=== PATIENT | male | born 1980 | race Caucasian/White ===

== ENCOUNTER 2023-03-28 15:24 | Inpatient (IN) | payer BC, SELFPAY ==
--- NOTE | ~2023-03-28 | CT_ITS ---
EXAMINATION: CT HEAD WITHOUT CONTRAST CLINICAL INFORMATION: Status post exchange administrator one week. COMPARISON: None available. TECHNIQUE: Contiguous axial imaging was performed from the skull base to vertex without intravenous administration of contrast. This CT examination was performed using dose optimization techniques as appropriate, variously including the following: *Automated exposure control *Adjustment of mA and/or kV according to patient size (this includes techniques or standardized protocols for targeted exams where dose is matched to indication/reason for exam; i.e. extremities or head) *Use of iterative reconstruction technique DLP: 1466 mGy-cm FINDINGS: The lateral, third and fourth ventricles are normally outlined. The cortical sulci and basal cisterns are normally outlined as well. There is no acute territorial defect, hemorrhage or midline shift. There is a 6 mm hypodensity in the region of the left basal ganglia. There is no acute territorial defect, hemorrhage or midline shift. The extra-axial spaces are unremarkable. Calvarium: Intact. Maxillofacial sinuses and mastoids: Clear as visualized. CT/CT head/brain wo IV con IMPRESSION: No acute intracranial pathology. 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
[2023-03-28 15:59] VITALS: BP 167/113; PULSE 115; RESP 18; TEMP 37.1; O2SAT 98; BMI 31.9
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
--- NOTE | 2023-03-28 16:03 | ECG_ITS ---
Test Reason : QT INTERVAL Blood Pressure : / mmHG Vent. Rate : 105 BPM Atrial Rate : 105 BPM P-R Int : 122 ms QRS Dur : 078 ms QT Int : 324 ms P-R-T Axes : 065 053 053 degrees QTc Int : 428 ms Sinus tachycardia RSR' pattern in V1 Nonspecific T wave abnormality Inferior leads Borderline ECG No previous ECGs available Referred By: Nelson Bernard Electronically Signed By:JORDAN DIA MD
[2023-03-28 17:11] LABS: MANUAL DIFF FLAG NO
[2023-03-28] MEDS: OLANZapine 5 MG TABLET PO (17:14)
--- NOTE | 2023-03-28 17:26 | PC.NURSE ---
Huber arrived as a voluntary inpatient bed search from [facility]. Huber was accompanied by his who reports he has slept very little in the last 2 weeks averaging an hour a night. Huber is disorganized and confused having a difficult time following directions and completing simple tasks like getting changed. EKG completed and labs drawn. Awaiting urine and providing water. Huber is observed self dialoguing and is requiring redirection to remain in his room or the TV area. Huber has required redirection to keep his clothes on as well as he has removed them twice. Olanzapine 5mg given awaiting results.
[2023-03-28 17:29] LABS: Basophils Percent Auto 0.3 % (0-2); Eosinophils Percent Auto 0.3 % (0-4); Ethanol < 10 mg/dL; Hematocrit 49.8 % (42.0-52.0); Imm Gran Abs Auto 0.04 X10*3/uL (0.00-0.03); Imm Gran Pct Auto 0.3 % (0.0-0.4); Lymphocytes Absolute Auto 1.9 X10*3/uL (1.2-4.9); Lymphocytes Percent Auto 16.2 % (20-40); Mean Corpuscular HGB Conc 34.1 g/dl (31.0-36.0); Monocytes Absolute Auto 0.9 X10*3/uL (0.1-1.2); Monocytes Percent Auto 7.7 % (2-11); Neutrophils Absolute Auto 8.6 x10*3/uL (2.0-8.3); Neutrophils Percent Auto 75.2 % (45-73); Platelet Count 280 X10*3/uL (160-400); Red Blood Count 5.86 X10*6/uL (4.60-5.80); Red Cell Distribution Width 12.3 % (11.0-16.0); White Blood Count 11.5 X10*3/uL (4.8-10.8)
[2023-03-28 17:36] LABS: Acetaminophen LAB < 17 mcg/mL (<30)
[2023-03-28 17:38] LABS: Alanine Aminotransferase 41 U/L (0-40); Albumin Level 5.3 g/dL (3.5-5.0); Alkaline Phosphatase 69 U/L (39-117); Anion Gap 18 (12-20); Aspartate Amino Transferase 27 U/L (5-37); Bilirubin Total 0.7 mg/dL (0.0-1.0); Blood Urea Nitrogen 13 mg/dL (9-16); Calcium 10.7 mg/dL (8.4-10.2); Carbon Dioxide 23 mmol/L (22-29); Chloride 103 mmol/L (96-108); Creatinine Clr Calc Pharmacy 96.3; Estimated Glomerular Filt Rate > 60; Glucose Random 134 mg/dL (60-115); Lipase 15 U/L (8-78); Potassium 3.6 mmol/L (3.3-5.1); Sodium 140 mmol/L (135-145); Total Protein 8.8 g/dL (6.5-8.0)
[2023-03-28 17:52] LABS: TSH reflex Free T4 1.19 uIU/mL (0.32-4.0)
[2023-03-28 18:35] LABS: Ammonia 26 umol/L (13-55)
[2023-03-28 19:10] LABS: Salicylate < 5.0 mg/dL (15-30)
[2023-03-28 19:32] LABS: Appearance Urine Clear; Color Urine Yellow; Glucose Urine UA Negative (Negative); Leukocyte Esterase Urine Negative (Negative); Nitrite Urine Negative (Negative); PH 5.5 (5.0-9.0); Specific Gravity - Urine <= 1.005 (1.005-1.025); Urine Blood Negative (Negative); Urine Ketones Negative (Negative); Urine Protein Negative (Neg-Trace)
[2023-03-28 19:35] LABS: Bacteria Urine None Seen (None Seen); Hyaline Casts Urine 0-2 /LPF (0-2); RBC Urine 0-2 /HPF (0-2); Squamous Epithelial Cell Urine 0-2 /HPF (0-2); WBC Urine 0-5 /HPF (0-5)
[2023-03-28 19:42] LABS: Amphetamine Screen Urine Not Detected (Not Detect); Barbiturates, Urine Not Detected (Not Detect); Benzodiazepines Screen Urine Not Detected (Not Detect); Cannabinoid Screen Urine POSITIVE (Not Detect); Cocaine Screen Urine Not Detected (Not Detect); Fentanyl, urine Not Detected (Not Detect); Opiate Screen Urine Not Detected (Not Detect); Phencyclidine Screen Urine Not Detected (Not Detect)
--- OUTSIDE RECORDS SUMMARY | 2023-03-28 19:57 | XMS_ITS | Continuity of Care Document ---
Author Name Unknown Organization [facility] Address [address] [place] [address]- Care Team Providers Care Power Electronics Engineer Name Role Phone Suman Tavera MD Primary Care Physician Encounter [facility] Date(s): 11/07/21 - 12/07/21 [facility] [address] [place] [place], [place] [address] Attending Physician: Eduard Funes Admitting Physician: AdmEduard hill Referring Physician: Admtr, [id number] Allergies, Adverse Reactions, Alerts No Known Allergies Immunizations Given and Recorded Vaccine Date Status Refusal Reason tetanus/diphtheria/pertussis, acel(Tdap) 10/10/11 Given Medications diclofenac 1% topical gel 1 application, Topically, 4 times a day, 2 g per dose, 8 g max day, # 100 Gm, 0 Refills, Maintenance, 11/07/21 12:00:00 EDT, Gel, [id number], Partial fill upon patient request if theprescription is for a schedule II opioid drug., 176... Start Date: 11/07/21 Stop Date: 11/14/21 Status: Ordered Problem List Condition Effective Dates Status Health Status Inform ant Essential Hypertension(Confirmed) Active Overweight and Obesity(Confirmed) Active
--- OUTSIDE RECORDS SUMMARY | 2023-03-28 19:57 | XMS_ITS | Continuity of Care Document ---
Author Name Unknown Organization [facility] Address [address] [place] [address]- Care Team Providers Care Movie Shot Cameraman Name Role Phone Suman Tavera MD Primary Care Physician [phone] Encounter [facility] Date(s): 11/07/21 - 11/14/21 [facility] [address] [place], [place] [address] Attending Physician: Avi Aguilar DO Allergies, Adverse Reactions, Alerts No Known Allergies Immunizations Given and Recorded Vaccine Date Status Refusal Reason tetanus/diphtheria/pertussis, acel(Tdap) 10/10/11 Given Medications diclofenac 1% topical gel 1 application, Topically, 4 times a day, 2 g per dose, 8 g max day, # 100 Gm, 0 Refills, Maintenance, 11/07/21 12:00:00 EDT, Gel, [id number], Partial fill upon patient request if theprescription is for a schedule II opioid drug., 176... Start Date: 11/07/21 Stop Date: 11/14/21 Status: Ordered Problem List Condition Effective Dates Status Health Status Inform ant Essential Hypertension(Confirmed) Active Overweight and Obesity(Confirmed) Active Vital Signs Most recent to oldest [Reference Range]: 1 Height 176.00 cm (11/07/21 11:34 AM) Oxygen Saturation [94-100 %] 96 % (11/07/21 11:34 AM) Pulse Rate [55-90 bpm] 78 bpm (11/07/21 11:34 AM) Blood Pressure [90-138/55-84 mm Hg] 150/ 103mm Hg *H* (11/07/21 11:34 AM) Respiratory Rate [16-30 br/min] 16 br/mi n (11/07/21 11:34 AM) Temperature [96.8-100.4 DegF] 98.1 DegF (11/07/21 11:34 AM) Mode of Delivery (Oxygen) Room air (11/07/21 11:34 AM) Blood pressure sites Arm, right (11/07/21 11:34 AM) Temperature Route Temporal (11/07/21 11:34 AM)
[2023-03-28] MEDS: OLANZapine ODT 10 MG TAB.RAPDIS 20 MG TRANSLINGU (21:29)
[2023-03-28] MEDS: LORazepam 1 MG TABLET 2 MG PO (21:29)
[2023-03-29 00:29] VITALS: RESP 16
--- NOTE | 2023-03-29 05:47 | PC.NURSE ---
Patient was disorganized, difficult to redirect, disrobing, disoriented, carbon sequestration plant engineer psychiatrist reach out for consult, Olanzapine 20 mg Zydis and ativan 2 mg po administered @ 2128 with + effect, patient ate 2 full sandwiches, provided urine sample, went to bed slept through the night, no distress observed/reported, disposition per [facility] is voluntary inpatient bed search, labs completed/resulted, will continue to monitor.
--- NOTE | 2023-03-29 07:37 | PC.NURSE ---
patient appears to remain asleep at present respirations are even and unlabored patient appears in no distress.
[2023-03-29 10:17] LABS: COVID-19 Test Negative (Negative); IDNOW Serial# BCCEAD1C
[2023-03-29] MEDS: Sertraline HCL 50 MG TABLET PO (10:41)
[2023-03-29 10:43] VITALS: BP 134/83; PULSE 87; RESP 16; TEMP 36.7; O2SAT 97
--- NOTE | 2023-03-29 11:32 | PC.NURSE ---
patient brought over to main ED, resting in bed in front of nurses station. respirations equal and unlabored pt does not appear to be in distress
[2023-03-29 14:41] VITALS: BP 136/93; PULSE 94; RESP 18; O2SAT 96
--- NOTE | 2023-03-29 14:42 | PC.NURSE ---
patient refused miralax and biscodyl states his bowels are fine
--- NOTE | 2023-03-29 15:55 | PHA.MEDREC ---
Pharmacy Consult ? Medication Reconciliation Pharmacy has completed the medication reconciliation. Reviewed med rec done by nursing
[2023-03-29 18:00] VITALS: BP 157/100; PULSE 111; TEMP 36.6; O2SAT 95
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
[2023-03-30] MEDS: Sertraline HCL 50 MG TABLET PO (08:17)
[2023-03-30] MEDS: Nicotine 14 MG PATCH.TD24 TRANSDERMA (08:18)
[2023-03-30 08:23] LABS: Alanine Aminotransferase 41 U/L (0-40); Albumin Level 4.5 g/dL (3.5-5.0); Alkaline Phosphatase 64 U/L (39-117); Anion Gap 16 (12-20); Aspartate Amino Transferase 24 U/L (5-37); Bilirubin Total 0.7 mg/dL (0.0-1.0); Blood Urea Nitrogen 20 mg/dL (9-16); Calcium 10.5 mg/dL (8.4-10.2); Carbon Dioxide 24 mmol/L (22-29); Chloride 108 mmol/L (96-108); Cholesterol 165 mg/dL (<200); Creatinine Clr Calc Pharmacy 88.4; Estimated Glomerular Filt Rate > 60; Glucose Fasting 100 mg/dL (60-99); HDL Cholesterol 34 mg/dL (>40); LDL Cholesterol Calculated 101 mg/dL (<100); Potassium 4.1 mmol/L (3.3-5.1); Sodium 144 mmol/L (135-145); Total Protein 7.5 g/dL (6.5-8.0); Triglycerides 150 mg/dL (<150)
[2023-03-30 09:26] VITALS: BP 171/108; PULSE 96; RESP 18; TEMP 36.2; O2SAT 96
[2023-03-30 09:40] VITALS: BP 167/106; PULSE 109
[2023-03-30] MEDS: LORazepam 1 MG TABLET PO (09:44)
[2023-03-30] MEDS: risperiDONE 0.25 MG TABLET PO (12:38)
[2023-03-30 18:00] VITALS: BP 136/92; PULSE 100; TEMP 36.1; O2SAT 97
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
[2023-03-30] MEDS: risperiDONE 0.5 MG TABLET PO (20:22)
[2023-03-31] MEDS: Sertraline HCL 50 MG TABLET PO (08:05)
[2023-03-31 10:03] VITALS: BP 157/97; PULSE 84; RESP 18; TEMP 36.4; O2SAT 97
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
[2023-03-31] MEDS: risperiDONE 0.5 MG TABLET PO ×2 (10:53→20:12)
[2023-03-31] MEDS: risperiDONE 0.25 MG TABLET PO (16:38)
[2023-03-31] MEDS: OLANZapine 5 MG TABLET PO (17:36)
[2023-03-31 18:31] VITALS: BP 164/102; PULSE 115; TEMP 36.4
[2023-03-31] MEDS: hydrOXYzine HCL 50 MG TABLET PO (22:37)
[2023-03-31] MEDS: OLANZapine 10 MG TABLET PO (23:38)
[2023-04-01 01:37] VITALS: BP 152/110; PULSE 92; RESP 18; O2SAT 94
[2023-04-01 08:00] VITALS: BP 154/106; PULSE 100; RESP 16; TEMP 36.8; O2SAT 96
[2023-04-01] MEDS: Sertraline HCL 50 MG TABLET PO (09:06)
[2023-04-01] MEDS: risperiDONE 0.5 MG TABLET PO (09:06)
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
[2023-04-01] MEDS: hydrOXYzine HCL 50 MG TABLET PO (13:09)
[2023-04-01] MEDS: cloNIDine HCL 0.1 MG TABLET PO ×2 (16:54→19:41)
[2023-04-01 16:57] VITALS: BP 141/99; PULSE 116; RESP 18
[2023-04-01 19:00] VITALS: BP 128/89; PULSE 85; RESP 16; TEMP 36.1; O2SAT 94
[2023-04-01] MEDS: Benztropine Mesylate 0.5 MG TABLET PO (19:41)
[2023-04-01] MEDS: risperiDONE 1 MG TABLET PO (19:41)
[2023-04-02 08:01] VITALS: BP 160/97; PULSE 102; RESP 16; TEMP 36.2; O2SAT 95
[2023-04-02] MEDS: Benztropine Mesylate 0.5 MG TABLET PO ×2 (08:51→19:43)
[2023-04-02] MEDS: cloNIDine HCL 0.1 MG TABLET PO ×3 (08:51→19:43)
[2023-04-02] MEDS: Nicotine 14 MG PATCH.TD24 TRANSDERMA (08:51)
[2023-04-02] MEDS: Sertraline HCL 50 MG TABLET PO (08:52)
[2023-04-02] MEDS: risperiDONE 1 MG TABLET PO (08:52)
[2023-04-02] MEDS: risperiDONE 0.25 MG TABLET 0.5 MG PO (12:08)
[2023-04-02] MEDS: hydrOXYzine HCL 50 MG TABLET PO (12:55)
[2023-04-02] MEDS: LORazepam 1 MG TABLET PO (13:15)
[2023-04-02] MEDS: HaloperidoL 5 MG TABLET 10 MG PO (13:15)
--- NOTE | 2023-04-02 13:35 | PC.NURSE ---
pt placed on 1:1 safety checks due to disorganization, disrobing, ad attempting to push through the nurses station
[2023-04-02 14:05] VITALS: BP 169/89; PULSE 112
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
[2023-04-02 18:00] VITALS: BP 133/90; PULSE 94; RESP 18; O2SAT 99
[2023-04-02] MEDS: risperiDONE 2 MG TABLET PO (19:43)
[2023-04-03 08:45] VITALS: BP 133/93; PULSE 77; RESP 16; TEMP 35.9; O2SAT 98
[2023-04-03] MEDS: cloNIDine HCL 0.1 MG TABLET PO ×3 (08:46→19:22)
[2023-04-03] MEDS: Benztropine Mesylate 0.5 MG TABLET PO ×2 (08:47→19:21)
[2023-04-03] MEDS: Sertraline HCL 50 MG TABLET PO (08:47)
[2023-04-03] MEDS: Nicotine 14 MG PATCH.TD24 TRANSDERMA (08:47)
[2023-04-03] MEDS: risperiDONE 2 MG TABLET PO ×2 (08:47→19:21)
[2023-04-03] MEDS: HaloperidoL 5 MG TABLET PO (10:38)
[2023-04-03] MEDS: risperiDONE 0.25 MG TABLET 0.5 MG PO (13:04)
[2023-04-03 14:57] VITALS: BP 135/90; PULSE 73
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
[2023-04-03] MEDS: Magnesium Hydrox/Alum Hydrox 30 ML ORAL.SUSP PO (18:37)
[2023-04-03 19:15] VITALS: BP 144/87; PULSE 113; TEMP 36.6
[2023-04-03] MEDS: traZODone HCL 50 MG TABLET PO (19:21)
[2023-04-04] MEDS: traZODone HCL 50 MG TABLET PO ×2 (00:02→20:04)
[2023-04-04] MEDS: hydrOXYzine HCL 50 MG TABLET PO (00:03)
[2023-04-04] MEDS: HaloperidoL 5 MG TABLET PO (00:03)
[2023-04-04 07:00] VITALS: BMI 31.9
[2023-04-04] MEDS: Sertraline HCL 50 MG TABLET PO (08:24)
[2023-04-04] MEDS: cloNIDine HCL 0.1 MG TABLET PO ×2 (08:24→14:34)
[2023-04-04] MEDS: Benztropine Mesylate 0.5 MG TABLET PO ×2 (08:24→20:05)
[2023-04-04] MEDS: risperiDONE 2 MG TABLET PO (08:24)
[2023-04-04] MEDS: Nicotine 14 MG PATCH.TD24 TRANSDERMA (08:24)
[2023-04-04 08:30] VITALS: BP 163/94; PULSE 74; RESP 18; TEMP 36.6; O2SAT 98
[2023-04-04 08:44] LABS: Estimated Average Glucose 103 mg/dL; Hemoglobin A1c % 5.2 % (<6.0)
[2023-04-04 09:29] LABS: Folate 11.4 ng/mL (> or = 4.0); Vitamin B12 536 pg/mL (200-900)
[2023-04-04] MEDS: HaloperidoL 5 MG TABLET 10 MG PO ×2 (11:12→20:04)
[2023-04-04] MEDS: Hydrocortisone 1 % Cream 28.35 GM TUBE 1 APPL TOPICAL (14:56)
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
[2023-04-04 18:00] VITALS: BP 92/56; PULSE 70; TEMP 35.8; O2SAT 97
[2023-04-05 08:30] VITALS: BP 132/87; PULSE 79; RESP 16; TEMP 36.6; O2SAT 98
[2023-04-05] MEDS: cloNIDine HCL 0.1 MG TABLET PO (08:36)
[2023-04-05] MEDS: Sertraline HCL 50 MG TABLET PO (08:36)
[2023-04-05] MEDS: HaloperidoL 5 MG TABLET 10 MG PO (08:36)
[2023-04-05] MEDS: Benztropine Mesylate 0.5 MG TABLET PO (08:36)
[2023-04-05] MEDS: HaloperidoL 5 MG TABLET PO (10:49)
--- NOTE | 2023-04-05 16:21 | PM.PSYDC ---
DS: Providers Provider Date of Service: 04/05/23 Date of admission: 03/29/23 15:53 Date of discharge: 04/05/23 Primary care physician: Unknown Physician Admitting clinician: Xiao Jones Attending physician on admission: Hebert Langston Attending physician on discharge: Hebert Langston Discharging clinician: Erika Okeefe DS: Diagnosis Discharge Diagnosis (1) Acute psychosis: Status: Resolved (2) Acute anxiety: Status: Resolved (3) Post traumatic stress disorder: Status: Acute DS: Medications Discharge Medications Home Medications: Previous Rx's Medication Instructions Recorded benztropine 0.5 mg tablet 0.5 mg PO BID #60 tabs 04/05/23 clonidine HCl 0.1 mg tablet 0.1 mg PO TID #90 tabs 04/05/23 haloperidol 5 mg tablet 5 mg PO BID PRN psychosis, 04/05/23 agitation #30 tabs haloperidol 5 mg tablet 10 mg (2 x 5 mg) PO BID #60 tabs 04/05/23 hydrocortisone 1 % topical cream 1 appl topical BID PRN Rash #1 04/05/23 units hydroxyzine pamoate 25 mg capsule 50 mg (2 x 25 mg) PO BID PRN 04/05/23 Anxiety #60 caps sertraline 50 mg tablet 50 mg PO DAILY #30 tabs 04/05/23 trazodone 50 mg tablet 50 mg PO BEDTIME MRX1 PRN Insomnia 04/05/23 #30 tabs Mental Status Exam Mental Status Exam Patient Appearance: Appropriate Patient Orientation: Person, Place, Time and Situation Level of Consciousness: Alert Patient Behavior: Appropriate, Talkative and Good Eye Contact Mood Description: Apprehensive Affect Description: Apprehensive Patient Cognition Impaired: No Ability to Follow Directions: Fair Speech Pattern: Spontaneous Speech Memory Description: Intact Hallucinations: None Delusions: Paranoid Ideation and Present Perceptual Disturbances: Depersonalization and Derealization Thought Process: Distracted Thought Content: positive for Suicidal Ideation (denies) and positive for Homicidal Ideation (denies) Depressive Symptoms: Increased Anxiety Judgement: Fair Data Data Completed and Pending Completed studies during hospitalization [Text1]: 03/30/23 04/04/23 07:40 08:16 Sodium 144 Potassium 4.1 Chloride 108 Carbon Dioxide 24 Anion Gap 16 BUN 20 H Creatinine 1.23 Estim Creat Clear Calc 88.4 Estimated GFR > 60 Fasting Glucose 100 H Estimat Average Glucose 103 Hemoglobin A1c % 5.2 Calcium 10.5 H Total Bilirubin 0.7 AST 24 ALT 41 H Alkaline Phosphatase 64 Total Protein 7.5 Albumin 4.5 Triglycerides 150 H Cholesterol 165 LDL Cholesterol, Calc 101 H HDL Cholesterol 34 L Vitamin B12 536 Folate 11.4 Imaging Diagnostic Imaging Impressions Head CT 03/28/23 18:34 IMPRESSION: No acute intracranial pathology. 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 DS: Summary Hospital Course Hospital Course: Admission to adult psychiatry for exacerbation of PTSD with acute psychosis. Pt's symptoms were best treated with Haldol. He was beginning to recompensate and do well. His family was very concerned that he was on a psychiatric unit. Unfortunately their community gave pt's much misinformation about the service. As a result, family was fearful that he was admitted. Much education was provided without success. Family asked and took him home before symptoms were completely managed. Pt and family are aware they are welcome to return as needed at any time. They also have numbers to call if they are in need of assistance should any complications arise. Pt, upon discharge, did tell his he was not wanting to leave, however, he did agree to trial a stay at home, aware that he may return at any time. Time spent discussing smoking cessation with patient: 3 to 10 minutes Status at Discharge Functional status at discharge: independent ambulation Overall status at discharge: patient is progressing back to baseline Time Spent with Patient Time attestation: Total time managing care of this patient today ____ minutes. Time spent: Greater than 30 minutes Discharge Plan Discharge Anticipated Discharge Date/Time: 04/05/23 12:23 Patient Disposition: Home, Self-Care Discharge Diagnosis: PTSD with acute psychosis Anxiety Referrals: [facility] Psychiatry w Newton Stevens [Other] - 04/11/23 9:00 am Therapy w Zara Benítez [Other] - 1 Week (Telehealth ) Suman Tavera MD [Physician] - 04/15/23 8:00 am (in office) Discharge Medications: Discontinued sertraline 50 mg tablet 50 mg PO DAILY MRX1 hydroxyzine pamoate 25 mg capsule 50 mg PO BID PRN (Reason: Anxiety) No Action haloperidol 5 mg Tablet 7.5 mg PO BID Qty: 90 0RF trazodone 50 mg Tablet 50 mg PO BEDTIME MRX1 PRN (Reason: Insomnia) Qty: 60 0RF hydrocortisone 1 % Cream 1 appl topical BID PRN (Reason: affected areas) Qty: 1 0RF Protocol: Apply to: Apply to: affected areas benztropine 1 mg Tablet 1 mg PO BID Qty: 60 0RF sertraline 25 mg Tablet 75 mg PO DAILY Qty: 45 0RF omeprazole 20 mg Capsule,Delayed Release(Dr/Ec) 20 mg PO DAILY@0630 Qty: 30 0RF clonidine HCl 0.1 mg tablet 0.1 mg PO TID Qty: 90 0RF hydroxyzine pamoate 25 mg capsule 50 mg PO BID Qty: 60 0RF Discharge Orders: Discharge Order (Routine); Ordered 04/05/23 Ordered By: Erika Okeefe Diet: Advance to usual diet Activity on Discharge: no operation of machinery, no driving, no power tool operation Stand Alone Forms: Patient Portal Discharge page, Community Support Care Plan Goals: Mood and Behavioral Stabilization Health Concerns: Mood and Behavioral Stabilization Plan of Treatment: Attend scheduled appointments Take medications as directed Allow Iris to guide you regarding activities that you should participate in Assessment: Pt interviewed prior to discharge and found to be fully oriented and without SI/HI. Pt and are aware he is discharging early per their request. Family is being told by community/family who are providers and employer he should not be in hospital. there is pressure to discharge as soon as possible. Pt has insight and demonstrates good judgment in terms of wanting to pursue treatment. Pt is not in imminent risk of harm to self or others and has a safety plan that includes presenting to the closest ER or calling 911 if feeling unsafe. Family will be with Huber at all times. Ying understands the need to guide pt with activity choice at this time. Pt has been observed closely by nursing and unit staff throughout admission. Pt has not engaged in any behaviors that suggest dangerousness to self or others and has demonstrated appropriate behaviors and impulse control. Discharge Date/Time: 04/05/23 11:15
== END 2023-04-05 11:15 | disposition home or self-care (01) | DRG 751 ==
LOC: HO.ED 03-29 10:59 → HO.PM5 03-29 15:54
PROVIDERS: Physician Assistant; Physician Assistant Medical; Student in an Organized Health Care Education/Training Program; Admitting Provider Registered Nurse; Emergency Provider Emergency Medicine; Visit Provider Clinical Nurse Specialist Psychiatric/Mental Health, Adult
DX: F23 Brief psychotic disorder (principal); F41.9 Anxiety disorder, unspecified; F43.10 Post-traumatic stress disorder, unspecified; Z20.822 Contact with and (suspected) exposure to COVID-19; Z62.810 Personal history of physical and sexual abuse in childhood; Z79.899 Other long term (current) drug therapy
CPT/HCPCS: 36415; 70450; 80053; 80061; 80143; 80179; 80307; 81001; 82140; 82607; 82746; 83036; 83690; 84443; 85025; 87635; 93005; 99284

== ENCOUNTER → 2023-03-29 15:53 | Outpatient (BNV) | payer BC, SELFPAY | PROVIDERS: Admitting Provider Registered Nurse; Emergency Provider Emergency Medicine; Visit Provider Clinical Nurse Specialist Psychiatric/Mental Health | DX: F23 Brief psychotic disorder (principal); F41.9 Anxiety disorder, unspecified; F43.11 Post-traumatic stress disorder, acute | CPT/HCPCS: 90792; 99231; 99232; 99239 ==

== ENCOUNTER → 2023-03-29 15:53 | Outpatient (BNV) | payer BC, SELFPAY | PROVIDERS: Admitting Provider Registered Nurse; Emergency Provider Emergency Medicine; Visit Provider Psychiatry & Neurology Psychiatry | DX: F23 Brief psychotic disorder (principal); F41.9 Anxiety disorder, unspecified; F43.11 Post-traumatic stress disorder, acute | CPT/HCPCS: 99232 ==

== ENCOUNTER 2023-04-05 20:10 | Inpatient (IN) | payer BC, SELFPAY ==
[2023-04-05 20:25] VITALS: BMI 37.2
--- NOTE | 2023-04-05 20:35 | ED_ITS ---
HPI - Psych General Stated Complaint: PARANOIA, SECT 12 PER EMS Source: EMS Mode of arrival: EMS Limitations: altered mental status History of Present Illness HPI Narrative: Patient comes to the emergency room via EMS from home. Patient was found to be psychotic, group social worker went to patient's residence, did a section 12. Patient is already a bed search. Patient is too psychotic to give any history. Patient is awake, pacing around, making aggressive gestures towards the staff. On arrival, patient had to be given medication restrain to avoid further escalation. Staff attended speaking to the patient, patient cannot reason at this time. Very psychotic. Of note, patient was discharged earlier today from this facility, inpatient psych. Seems that at the time of discharge, patient was fully oriented without SI or HI. Patient was discharged early per patient's and family's request. Related Data Previous Rx's Medication Instructions Recorded sertraline 50 mg tablet 50 mg PO DAILY #30 tabs 04/05/23 Allergies Allergy/AdvReac Type Severity Reaction Status Date / Time No Known Allergies Allergy Verified 03/28/23 16:06 Review of Systems Review of Systems: Yes Unobtainable due to mental status [facility] Past Medical History Medical History (Updated 04/05/23 @ 20:42 by Janki Torres MD) Post traumatic stress disorder Acute anxiety Acute psychosis Social History Social History Household Members: Spouse and Children Household Members Other:: . Son and Daughter Housing: House Do you presently have visiting nurse or other home services: No Patient Tobacco Use Status: Never used Tobacco e-Cigarette/Vaping Use: Never Used Second Hand Smoke Exposure: No service: No Sexual orientation: Straight/Heterosexual Physical Exam Const: Other: Appearance: Alert. Psychotic, making physical aggressive gestures towards the staff Eyes: Pupils equal, round and reactive to light. ENT: Pharynx normal. Neck: Normal inspection. Neck supple. No lymph nodes noted. No crepitus CVS: Normal heart rate and rhythm. Pulses normal. Normal S1 and S2 Respiratory: No respiratory distress. Breath sounds normal. No Wheezing. No rales Abdomen: Soft and nontender. No rigidity. No distention. Skin: Skin warm and dry. Normal skin color. Normal skin turgor. Extremities: No lower extremity edema. No Lacerations. No Rash Neuro:Moving all extremities. No slurred speech. CN 2 through 12 grossly intact, cannot participate in full assessment Psych: Agitated, aggressive gestures, psychotic Course Course Course Narrative: -on arrival, given the patient's escalating behavior, patient was given IM Haldol 5 mg, Ativan 2 mg, Benadryl 50 mg -patient is struggling to follow directions -all of patient's labs pending -patient is on a Section 12 -inpatient bed search in progress Medical Decision Making Differential Diagnosis Differential Diagnoses: The differential diagnosis associated with the presentation includes (Psychosis, polysubstance abuse, alcohol intoxication) Admission/Observation Consideration of admission/observation: Escalation of care including admission/observation considered (Patient is an inpatient bed search, patient will be hospitalized) Critical Care Time Critical Care Time Critical Care Time: Yes Total Critical Care Time: 60 Attestation: I have personally provided critical care time. Time includes review of lab data, radiology results, discussion with consultants, and monitoring for potential decompensation. Intervention performed as documented. Discharge Plan Discharge Clinical Impression: Acute psychosis Patient Disposition: Still a Patient Prescriptions: No Action sertraline 50 mg Tablet 50 mg PO DAILY Qty: 30 0RF
[2023-04-05 20:45] VITALS: RESP 21
[2023-04-05] MEDS: Haloperidol Lactate 5 MG/ML VIAL IM (20:45)
[2023-04-05] MEDS: LORazepam 2 MG/ML VIAL IM (20:45)
[2023-04-05] MEDS: diphenhydrAMINE HCL 50 MG/ML VIAL IM (20:45)
[2023-04-05 21:00] VITALS: RESP 18
[2023-04-05 21:15] VITALS: RESP 16
[2023-04-05 21:30] VITALS: RESP 16
[2023-04-05 21:45] VITALS: RESP 16
[2023-04-05 22:08] VITALS: RESP 16
[2023-04-05 22:23] LABS: Appearance Urine Clear; Color Urine Yellow; Glucose Urine UA Negative (Negative); Leukocyte Esterase Urine Negative (Negative); Nitrite Urine Negative (Negative); PH 5.5 (5.0-9.0); Specific Gravity - Urine 1.015 (1.005-1.025); Urine Blood Negative (Negative); Urine Ketones Negative (Negative); Urine Protein Negative (Neg-Trace)
[2023-04-05 22:33] LABS: Amphetamine Screen Urine Not Detected (Not Detect); Barbiturates, Urine Not Detected (Not Detect); Benzodiazepines Screen Urine Not Detected (Not Detect); Cannabinoid Screen Urine Not Detected (Not Detect); Cocaine Screen Urine Not Detected (Not Detect); Fentanyl, urine Not Detected (Not Detect); Opiate Screen Urine Not Detected (Not Detect); Phencyclidine Screen Urine Not Detected (Not Detect)
--- NOTE | 2023-04-06 06:44 | PC.NURSE ---
Patient was S/P chemical restraint, slept through the night, no distress observed/reported, at the time of arrival patient paranoid but patient later seem clear up followed direction well during urine sample collection, blood work pending, care consult ordered/pendign evaluation, will continue to monitor.
--- NOTE | 2023-04-06 07:08 | PC.NURSE ---
patient appears to remain asleep at present respirations are even and unlabored patient appears in no distress
[2023-04-06 08:49] VITALS: BP 131/88; PULSE 80; RESP 16; TEMP 36.7; O2SAT 97
[2023-04-06] MEDS: HaloperidoL 5 MG TABLET 10 MG PO ×2 (09:56→20:01)
[2023-04-06] MEDS: hydrOXYzine HCL 50 MG TABLET PO ×2 (09:57→20:01)
[2023-04-06] MEDS: cloNIDine HCL 0.1 MG TABLET PO ×3 (09:57→20:01)
[2023-04-06] MEDS: Benztropine Mesylate 0.5 MG TABLET PO ×2 (09:58→20:01)
[2023-04-06] MEDS: Sertraline HCL 50 MG TABLET PO (09:58)
--- NOTE | 2023-04-06 15:10 | PHA.MEDREC ---
Pharmacy Consult ? Medication Reconciliation Pharmacy has completed the medication reconciliation. Pt recently discharged, reviewed med rec done by nursing
--- NOTE | 2023-04-06 16:08 | PC.NURSE ---
patient very quiet, minimally coming out of room, naps lengthily.
[2023-04-06 18:26] VITALS: BP 108/76; PULSE 81; RESP 16; TEMP 36.8; O2SAT 96
[2023-04-06 19:58] VITALS: BP 106/79; PULSE 88; RESP 16; TEMP 36.3; O2SAT 96
[2023-04-06] MEDS: traZODone HCL 50 MG TABLET PO (20:01)
[2023-04-06 20:26] LABS: MANUAL DIFF FLAG NO
[2023-04-06 20:29] LABS: Basophils Percent Auto 0.4 % (0-2); Eosinophils Absolute Auto 0.1 X10*3/uL (0.0-0.4); Eosinophils Percent Auto 0.9 % (0-4); Hematocrit 42.1 % (42.0-52.0); Hemoglobin 14.1 g/dl (14.0-18.0); Imm Gran Abs Auto 0.03 X10*3/uL (0.00-0.03); Imm Gran Pct Auto 0.4 % (0.0-0.4); Lymphocytes Percent Auto 25.7 % (20-40); Mean Corpuscular HGB Conc 33.5 g/dl (31.0-36.0); Mean Corpuscular Volume 86.4 fL (80.0-98.0); Mean Platelet Volume 10.4 fL (9.4-12.4); Monocytes Absolute Auto 0.7 X10*3/uL (0.1-1.2); Monocytes Percent Auto 8.3 % (2-11); Neutrophils Percent Auto 64.3 % (45-73); Platelet Count 202 X10*3/uL (160-400); Red Blood Count 4.87 X10*6/uL (4.60-5.80); Red Cell Distribution Width 12.2 % (11.0-16.0); White Blood Count 7.8 X10*3/uL (4.8-10.8)
[2023-04-06 20:41] LABS: COVID-19 Test Negative (Negative); IDNOW Serial# BCCEAD1C
[2023-04-06 20:50] LABS: Alanine Aminotransferase 41 U/L (0-40); Albumin Level 4.1 g/dL (3.5-5.0); Alkaline Phosphatase 63 U/L (39-117); Anion Gap 15 (12-20); Aspartate Amino Transferase 37 U/L (5-37); Bilirubin Total 0.5 mg/dL (0.0-1.0); Blood Urea Nitrogen 17 mg/dL (9-16); Calcium 9.4 mg/dL (8.4-10.2); Carbon Dioxide 24 mmol/L (22-29); Chloride 105 mmol/L (96-108); Creatinine Clr Calc Pharmacy 99.9; Estimated Glomerular Filt Rate > 60; Ethanol < 10 mg/dL; Glucose Random 130 mg/dL (60-115); Potassium 3.7 mmol/L (3.3-5.1); Sodium 140 mmol/L (135-145); Total Protein 6.6 g/dL (6.5-8.0)
--- NOTE | 2023-04-07 06:04 | PC.NURSE ---
Patient slept through the night, no distress observed/reported, behavior non concerning, thought content clear and coherent, disposition per [facility] is section 12 inpatient bed search, labs completed/resulted/reviewed, medication compliant, VSS, will continue to monitor.
--- NOTE | 2023-04-07 07:28 | PC.NURSE ---
patient appears to remain asleep at present respirations are even and unlabored patient appears in no distress
[2023-04-07] MEDS: cloNIDine HCL 0.1 MG TABLET PO ×3 (07:53→20:28)
[2023-04-07] MEDS: Sertraline HCL 50 MG TABLET PO (07:53)
[2023-04-07] MEDS: hydrOXYzine HCL 50 MG TABLET PO ×2 (07:53→20:28)
[2023-04-07] MEDS: HaloperidoL 5 MG TABLET 10 MG PO ×2 (07:53→20:28)
[2023-04-07] MEDS: Benztropine Mesylate 0.5 MG TABLET PO ×2 (07:53→20:28)
[2023-04-07 20:21] VITALS: BP 104/72; PULSE 66; O2SAT 99
[2023-04-07] MEDS: traZODone HCL 50 MG TABLET PO (20:28)
[2023-04-08 00:54] VITALS: RESP 14
--- NOTE | 2023-04-08 00:54 | PC.NURSE ---
Assumed care of patient at 2300. Pt sleeping, respirations even and unlabored, no apparent distress
[2023-04-08 06:21] VITALS: RESP 12
[2023-04-08 07:08] VITALS: BP 121/73; PULSE 60; RESP 16; TEMP 36.6; O2SAT 99
[2023-04-08 08:12] LABS: COVID-19 Test Negative (Negative); IDNOW Serial# 9DB6401D
[2023-04-08] MEDS: HaloperidoL 5 MG TABLET 10 MG PO ×2 (09:12→20:48)
[2023-04-08] MEDS: Sertraline HCL 50 MG TABLET PO (09:12)
[2023-04-08] MEDS: cloNIDine HCL 0.1 MG TABLET PO ×3 (09:12→20:48)
[2023-04-08] MEDS: hydrOXYzine HCL 50 MG TABLET PO ×2 (09:12→20:48)
[2023-04-08] MEDS: Benztropine Mesylate 0.5 MG TABLET PO ×2 (09:12→20:48)
--- NOTE | 2023-04-08 11:27 | ECG_ITS ---
Test Reason : QT INTERVAL Blood Pressure : / mmHG Vent. Rate : 053 BPM Atrial Rate : 053 BPM P-R Int : 130 ms QRS Dur : 086 ms QT Int : 438 ms P-R-T Axes : 034 048 015 degrees QTc Int : 410 ms Sinus bradycardia Otherwise normal ECG When compared with ECG of 28-MAR-2023 16:29, Vent. rate has decreased BY 52 BPM Non-specific change in ST segment in Inferior leads ST elevation now present in Lateral leads Referred By: Thomas Garcia Electronically Signed By:JORDAN DIA MD
--- NOTE | 2023-04-08 14:45 | PC.NURSE ---
Huber was in his room resting for most of the shift. No behavioral concerns. Huber was adherent with his AM medications and his appetite was good. Several phone calls with his which he reports were positive. No complaints of pain or discomfort. Denies SI/HI/AVH.
[2023-04-08 14:54] VITALS: BP 125/83; PULSE 67; RESP 18; TEMP 36.4; O2SAT 97
[2023-04-08 14:55] VITALS: BMI 32.9
--- NOTE | 2023-04-08 14:56 | PC.ADMIT ---
Huber arrived to the at 1430 on a conditional voluntary, sharps check done by bond underwriter and male [facility] [place] [facility]. Upon approach Huber is calm and pleasant, he reports he was discharged on Saturday, stated I feel better that I'm here. He denied feeling anxious or depressed, denied AVH, when asked if he had any thoughts of wanting to hurt self stated No, verbalized to look for staff if thoughts occur. Per assessment he was assessed by [facility] for paranoia, delusions and unintentional aggression, of the FBI trying to hack is family. When Police arrived on scene patient aggressively tried closing the door, he laid on the ground and stated I'm ready to be arrested.' Patient reports he started feeling like this due to My job was very stressful, he reports also dealing with childhood trauma.
[2023-04-08 16:00] VITALS: BP 124/78; PULSE 69; TEMP 36.6
[2023-04-08 20:50] VITALS: BP 95/65; PULSE 72
[2023-04-09 06:00] VITALS: BP 125/79; PULSE 93; RESP 18; O2SAT 98
[2023-04-09] MEDS: hydrOXYzine HCL 50 MG TABLET PO ×2 (08:16→19:38)
[2023-04-09] MEDS: cloNIDine HCL 0.1 MG TABLET PO ×3 (08:16→19:38)
[2023-04-09] MEDS: Sertraline HCL 50 MG TABLET PO (08:16)
[2023-04-09] MEDS: HaloperidoL 5 MG TABLET 10 MG PO ×2 (08:16→19:37)
[2023-04-09] MEDS: Benztropine Mesylate 0.5 MG TABLET PO ×2 (08:16→19:36)
[2023-04-09 08:41] LABS: Estimated Average Glucose 103 mg/dL; Hemoglobin A1c % 5.2 % (<6.0)
[2023-04-09 09:20] LABS: Cholesterol 180 mg/dL (<200); HDL Cholesterol 29 mg/dL (>40); LDL Cholesterol Calculated 99 mg/dL (<100); Magnesium 2.2 mg/dL (1.6-2.6); Triglycerides 260 mg/dL (<150)
[2023-04-09 09:29] LABS: Free T4 (Free Thyroxine) 0.94 ng/dL (0.71-1.85); Thyroid Stimulating Hormone 2.08 uIU/mL (0.32-4.0)
[2023-04-09 09:39] LABS: Folate 9.8 ng/mL (> or = 4.0); Vitamin B12 623 pg/mL (200-900)
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
[2023-04-09] MEDS: hydrOXYzine HCL 25 MG TABLET PO (14:23)
[2023-04-09 14:24] VITALS: BP 111/69; PULSE 68
[2023-04-09 17:06] VITALS: BP 113/74; PULSE 66; RESP 16; TEMP 36.2; O2SAT 98
[2023-04-09] MEDS: traZODone HCL 50 MG TABLET PO (19:36)
[2023-04-10 09:30] VITALS: BP 121/80; PULSE 62; RESP 16; TEMP 35.8; O2SAT 97
[2023-04-10] MEDS: Sertraline HCL 50 MG TABLET PO (09:46)
[2023-04-10] MEDS: Benztropine Mesylate 0.5 MG TABLET PO ×2 (09:46→20:41)
[2023-04-10] MEDS: hydrOXYzine HCL 50 MG TABLET PO ×2 (09:46→20:43)
[2023-04-10] MEDS: HaloperidoL 5 MG TABLET 10 MG PO ×2 (09:46→20:43)
[2023-04-10] MEDS: cloNIDine HCL 0.1 MG TABLET PO ×3 (09:46→20:42)
[2023-04-10 14:26] VITALS: BP 127/87; PULSE 98
--- NOTE | 2023-04-10 16:38 | P.PNPSI_ITS ---
Subjective Subjective Date of Service: 04/10/23 Reason For Visit: PTSD Acute Psychosis Subjective Notes: Conditional Voluntary Healthcare Proxy: No Guardianship: No Medical Problems Affecting Mental Status: No Interim History: Pt reports continued improvement. Reports sleep and appetite are intact, denies fears, worries, concerns however, not feeling ready to leave. Denies feeling fearful of home/family, yet appears apprehensive. States he feels ready to have a family meeting tomorrow. States visits daily. Message left to schedule a couples meeting. Team report pt is superficial, bright, on guard and with apprehension. Medication Compliance: Yes Side effects from medications: No Attending Groups: Intermittent Review of Systems Acute medical concerns: No Medical Review of Systems: unchanged Mental Status Exam Mental Status Exam Patient Appearance: Appropriate Patient Orientation: Person, Place, Time and Situation Level of Consciousness: Alert Patient Behavior: Talkative, Cooperative and Good Eye Contact Mood Description: Suspicious and Anxious Affect Description: Anxious Patient Cognition Impaired: No Ability to Follow Directions: Good Speech Pattern: Spontaneous Speech and Long Pauses Memory Description: Remote Impaired Hallucinations: None Delusions: Paranoid Ideation Perceptual Disturbances: Depersonalization and Derealization Thought Process: Distracted, Rumination and Slowed Thinking Thought Content: positive for [place], positive for Circumstantial, positive for Perseveration, positive for Suicidal Ideation (denies) and positive for Homicidal Ideation (denies) Depressive Symptoms: Increased Anxiety, Diff. Making Decisions, Isolating- Friends/Family, Feelings of Guilt, Unhappiness, Thoughts of /Suicide (denies), Low Self Esteem and Difficulty Concentrating Judgement: Fair Diagnostics Vital Signs (24Hr): Vital Signs - 24 hr 04/09/23 17:06 04/10/23 09:30 04/10/23 14:26 Temperature 97.1 F 96.4 F L Pulse Rate 66 62 98 Respiratory Rate 16 16 Blood Pressure 113/74 121/80 127/87 Pulse Oximetry 98 97 Oxygen Delivery Method Room Air Room Air BMI result Body Mass Index 32.9 Labs 04/06/23 20:18 04/06/23 20:18 Labs: Laboratory Results - last 48 hr 04/09/23 04/09/23 07:56 07:57 Estimat Average Glucose 103 Hemoglobin A1c % 5.2 Magnesium 2.2 Triglycerides 260 H Cholesterol 180 LDL Cholesterol, Calc 99 HDL Cholesterol 29 L Vitamin B12 623 Folate 9.8 TSH 2.08 Free T4 0.94 Medications Medications Current Medications Acetaminophen (Acetaminophen 325 Mg Tablet) 650 mg PO Q6H PRN PRN Reason: Headache/Pain Mild Scale (1-3) Al Hydroxide/Mg Hydroxide (Magnesium Hydrox/Alum Hydrox 30 Ml Oral.Susp) 30 ml PO Q6H PRN PRN Reason: Heartburn/Nausea Benztropine Mesylate (Benztropine Mesylate 0.5 Mg Tablet) 0.5 mg PO BID [facility] Last Admin: 04/10/23 09:46 Dose: 0.5 mg Clonidine HCl (Clonidine Hcl 0.1 Mg Tablet) 0.1 mg PO TID [facility]; Protocol Last Admin: 04/10/23 14:25 Dose: 0.1 mg Haloperidol (Haloperidol 5 Mg Tablet) 10 mg PO BID [facility] Last Admin: 04/10/23 09:46 Dose: 10 mg Hydroxyzine HCl (Hydroxyzine Hcl 50 Mg Tablet) 50 mg PO BID [facility] Last Admin: 04/10/23 09:46 Dose: 50 mg Hydroxyzine HCl (Hydroxyzine Hcl 25 Mg Tablet) 25 mg PO Q6H PRN PRN Reason: Anxiety Last Admin: 04/09/23 14:23 Dose: 25 mg Magnesium Hydroxide (Milk Of Magnesia 30 Ml Oral.Susp) 30 ml PO DAILY PRN PRN Reason: Constipation Sertraline HCl (Sertraline Hcl 50 Mg Tablet) 50 mg PO DAILY [facility] Last Admin: 04/10/23 09:46 Dose: 50 mg Trazodone HCl (Trazodone Hcl 50 Mg Tablet) 50 mg PO BEDTIME MRX1 PRN PRN Reason: Insomnia Last Admin: 04/09/23 19:36 Dose: 50 mg Allergies Allergies Allergy/AdvReac Type Severity Reaction Status Date / Time No Known Allergies Allergy Verified 03/28/23 16:06 Assessment & Plan Assessment & Plan (1) Post traumatic stress disorder: Status: Acute Code(s): F43.10 - Post-traumatic stress disorder, unspecified (2) Acute anxiety: Status: Acute Code(s): F41.9 - Anxiety disorder, unspecified (3) Acute psychosis: Status: Acute Code(s): F23 - Brief psychotic disorder Plan 04/10/23- Schedule family meeting EEG Patient educated on: therapeutic strategies Informed Consent: further education needed Reason for continued inpatient stay Substantial Risk for: rapid decompensation Time Spent With Patient Time: Total time managing care of this patient today ____ minutes.
[2023-04-10 18:00] VITALS: BP 110/71; PULSE 67; TEMP 36.4
[2023-04-10] MEDS: traZODone HCL 50 MG TABLET PO (20:47)
[2023-04-11 07:00] VITALS: BMI 33.3
[2023-04-11 08:00] VITALS: BP 131/81; PULSE 61; RESP 18; TEMP 36.3; O2SAT 98
[2023-04-11] MEDS: Sertraline HCL 25 MG TABLET 75 MG PO (08:15)
[2023-04-11] MEDS: Benztropine Mesylate 0.5 MG TABLET PO ×2 (08:16→19:39)
[2023-04-11] MEDS: HaloperidoL 5 MG TABLET 10 MG PO ×2 (08:16→19:39)
[2023-04-11] MEDS: hydrOXYzine HCL 50 MG TABLET PO ×2 (08:16→19:39)
[2023-04-11] MEDS: cloNIDine HCL 0.1 MG TABLET PO ×3 (08:16→19:39)
--- NOTE | 2023-04-11 10:12 | P.PNPSI_ITS ---
Subjective Subjective Date of Service: 04/11/23 Reason For Visit: PTSD Acute Psychosis Subjective Notes: Conditional Voluntary Healthcare Proxy: No Guardianship: No Medical Problems Affecting Mental Status: No Interim History: Continues to improve. Couples meeting where we processed last Saturday's discharge and symptom breakthrough at home. Discussed effect of triggers and their strength in symptom presentation. Review of regime, discussion of discharge, discussion of family efforts to support pt and to assist him with responsibilities at home. Family will travel for Thanksgiving-they have reserved a cabin in [facility] for rest, relaxation and to have a quiet holiday. Pt is pleased with this plan. Medication Compliance: Yes Side effects from medications: No Attending Groups: Intermittent Review of Systems Acute medical concerns: No Medical Review of Systems: unchanged Mental Status Exam Mental Status Exam Patient Appearance: Appropriate Patient Orientation: Person, Place, Time and Situation Level of Consciousness: Alert Patient Behavior: Talkative, Cooperative and Good Eye Contact Mood Description: Anxious Affect Description: Anxious Patient Cognition Impaired: No Ability to Follow Directions: Good Speech Pattern: Spontaneous Speech and Long Pauses Memory Description: Remote Impaired Hallucinations: None Delusions: Present (resolving) Perceptual Disturbances: Depersonalization and Derealization Thought Process: Distracted, Rumination and Slowed Thinking Thought Content: positive for [place], positive for Circumstantial, positive for Perseveration, positive for Suicidal Ideation (denies) and positive for Homicidal Ideation (denies) Depressive Symptoms: Increased Anxiety, Diff. Making Decisions, Feelings of Guilt, Thoughts of /Suicide (denies), Low Self Esteem and Difficulty Concentrating Judgement: Good Diagnostics Vital Signs (24Hr): Vital Signs - 24 hr 04/10/23 14:26 04/10/23 18:00 04/11/23 08:00 Temperature 97.6 F 97.4 F Pulse Rate 98 67 61 Respiratory Rate 18 Blood Pressure 127/87 110/71 131/81 Pulse Oximetry 98 Oxygen Delivery Method Room Air BMI result Body Mass Index 32.9 Labs 04/06/23 20:18 04/06/23 20:18 Medications Medications Current Medications Acetaminophen (Acetaminophen 325 Mg Tablet) 650 mg PO Q6H PRN PRN Reason: Headache/Pain Mild Scale (1-3) Al Hydroxide/Mg Hydroxide (Magnesium Hydrox/Alum Hydrox 30 Ml Oral.Susp) 30 ml PO Q6H PRN PRN Reason: Heartburn/Nausea Benztropine Mesylate (Benztropine Mesylate 0.5 Mg Tablet) 0.5 mg PO BID [facility] Last Admin: 04/11/23 08:16 Dose: 0.5 mg Clonidine HCl (Clonidine Hcl 0.1 Mg Tablet) 0.1 mg PO TID [facility]; Protocol Last Admin: 04/11/23 08:16 Dose: 0.1 mg Haloperidol (Haloperidol 5 Mg Tablet) 10 mg PO BID [facility] Last Admin: 04/11/23 08:16 Dose: 10 mg Hydroxyzine HCl (Hydroxyzine Hcl 50 Mg Tablet) 50 mg PO BID [facility] Last Admin: 04/11/23 08:16 Dose: 50 mg Hydroxyzine HCl (Hydroxyzine Hcl 25 Mg Tablet) 25 mg PO Q6H PRN PRN Reason: Anxiety Last Admin: 04/09/23 14:23 Dose: 25 mg Magnesium Hydroxide (Milk Of Magnesia 30 Ml Oral.Susp) 30 ml PO DAILY PRN PRN Reason: Constipation Sertraline HCl (Sertraline Hcl 25 Mg Tablet) 75 mg PO DAILY [facility] Last Admin: 04/11/23 08:15 Dose: 75 mg Trazodone HCl (Trazodone Hcl 50 Mg Tablet) 50 mg PO BEDTIME MRX1 PRN PRN Reason: Insomnia Last Admin: 04/10/23 20:47 Dose: 50 mg Allergies Allergies Allergy/AdvReac Type Severity Reaction Status Date / Time No Known Allergies Allergy Verified 03/28/23 16:06 Assessment & Plan Assessment & Plan (1) Post traumatic stress disorder: Status: Acute Code(s): F43.10 - Post-traumatic stress disorder, unspecified (2) Acute anxiety: Status: Acute Code(s): F41.9 - Anxiety disorder, unspecified (3) Acute psychosis: Status: Acute Code(s): F23 - Brief psychotic disorder Plan 04/10/23- Schedule family meeting EEG 04/11/23- Continue regime/plan EEG has been scheduled for 04/12. Pt agrees with this plan. Patient educated on: medication risk/benefits and therapeutic strategies Guardian/Caregiver educated on: medication risk/benefits and therapeutic strategies Informed Consent: understands and further education needed Reason for continued inpatient stay Substantial Risk for: rapid decompensation Time Spent With Patient Time: Total time managing care of this patient today ____ minutes.
[2023-04-11 18:00] VITALS: BP 121/70; PULSE 75; RESP 18; TEMP 36.6; O2SAT 98
[2023-04-11] MEDS: hydrOXYzine HCL 25 MG TABLET PO (19:39)
[2023-04-11] MEDS: traZODone HCL 50 MG TABLET PO (19:39)
--- NOTE | 2023-04-12 | EEG_ITS ---
This is a 16-channel EEG with an EKG lead. The patient is reported awake during the tracing. Background EEG rhythm is low amplitude fast with no obvious asymmetry or paroxysmal tendency. Photic stimulation does not produce any significant abnormality. Hyperventilation is not performed. Cardiac lead does not reveal any significant abnormality. IMPRESSION: Unremarkable EEG. MD KAELA Joy/LATONYA / [id number]
[2023-04-12] MEDS: Benztropine Mesylate 0.5 MG TABLET PO (08:20)
[2023-04-12] MEDS: HaloperidoL 5 MG TABLET 10 MG PO ×2 (08:20→20:38)
[2023-04-12] MEDS: Sertraline HCL 25 MG TABLET 75 MG PO (08:20)
[2023-04-12] MEDS: hydrOXYzine HCL 50 MG TABLET PO ×2 (08:20→20:38)
[2023-04-12] MEDS: cloNIDine HCL 0.1 MG TABLET PO ×3 (08:20→20:38)
[2023-04-12 08:25] VITALS: BP 115/58; PULSE 62; RESP 18; TEMP 35.9; O2SAT 99
--- NOTE | 2023-04-12 13:04 | P.PNPSI_ITS ---
Subjective Subjective Date of Service: 04/12/23 Reason For Visit: PTSD Acute Psychosis Subjective Notes: Conditional Voluntary Healthcare Proxy: No Guardianship: No Medical Problems Affecting Mental Status: No Interim History: EEG completed. Results are pending. Pt/ report EPS sx, seen in stiff gait. Benztropine increased Pt discussing discharge, review of potential fears/concerns about going home. He is considering these questions. Medication Compliance: Yes Side effects from medications: No Attending Groups: Yes Review of Systems Acute medical concerns: No Medical Review of Systems: unchanged Mental Status Exam Mental Status Exam Patient Appearance: Appropriate Patient Orientation: Person, Place, Time and Situation Level of Consciousness: Alert Patient Behavior: Talkative, Cooperative and Good Eye Contact Mood Description: Anxious Affect Description: Anxious Patient Cognition Impaired: No Ability to Follow Directions: Good Speech Pattern: Spontaneous Speech and Long Pauses Memory Description: Remote Impaired Hallucinations: None Delusions: Present (resolving) Perceptual Disturbances: Depersonalization and Derealization Thought Process: Distracted, Rumination and Slowed Thinking Thought Content: positive for [place], positive for Circumstantial, positive for Perseveration, positive for Suicidal Ideation (denies) and positive for Homicidal Ideation (denies) Depressive Symptoms: Increased Anxiety, Diff. Making Decisions, Feelings of Guilt, Thoughts of /Suicide (denies), Low Self Esteem and Difficulty Concentrating Judgement: Good Diagnostics Vital Signs (24Hr): Vital Signs - 24 hr 04/11/23 18:00 04/12/23 08:25 Temperature 97.8 F 96.7 F L Pulse Rate 75 62 Respiratory Rate 18 18 Blood Pressure 121/70 115/58 L Pulse Oximetry 98 99 Oxygen Delivery Method Room Air Room Air BMI result Body Mass Index 33.3 Labs 04/06/23 20:18 04/06/23 20:18 Medications Medications Current Medications Acetaminophen (Acetaminophen 325 Mg Tablet) 650 mg PO Q6H PRN PRN Reason: Headache/Pain Mild Scale (1-3) Al Hydroxide/Mg Hydroxide (Magnesium Hydrox/Alum Hydrox 30 Ml Oral.Susp) 30 ml PO Q6H PRN PRN Reason: Heartburn/Nausea Benztropine Mesylate (Benztropine Mesylate 1 Mg Tablet) 1 mg PO BID [facility] Clonidine HCl (Clonidine Hcl 0.1 Mg Tablet) 0.1 mg PO TID [facility]; Protocol Last Admin: 04/12/23 08:20 Dose: 0.1 mg Haloperidol (Haloperidol 5 Mg Tablet) 10 mg PO BID [facility] Last Admin: 04/12/23 08:20 Dose: 10 mg Hydrocortisone (Hydrocortisone 1 % Cream 28.35 Gm Tube) 1 appl TOPICAL BID PRN; Protocol PRN Reason: affected areas Hydroxyzine HCl (Hydroxyzine Hcl 50 Mg Tablet) 50 mg PO BID [facility] Last Admin: 04/12/23 08:20 Dose: 50 mg Hydroxyzine HCl (Hydroxyzine Hcl 25 Mg Tablet) 25 mg PO Q6H PRN PRN Reason: Anxiety Last Admin: 04/11/23 19:39 Dose: 25 mg Magnesium Hydroxide (Milk Of Magnesia 30 Ml Oral.Susp) 30 ml PO DAILY PRN PRN Reason: Constipation Omeprazole (Omeprazole 20 Mg Capsule.Dr) 20 mg PO DAILY@0630 [facility] Last Admin: 04/12/23 06:25 Dose: Not Given Sertraline HCl (Sertraline Hcl 25 Mg Tablet) 75 mg PO DAILY [facility] Last Admin: 04/12/23 08:20 Dose: 75 mg Trazodone HCl (Trazodone Hcl 50 Mg Tablet) 50 mg PO BEDTIME MRX1 PRN PRN Reason: Insomnia Last Admin: 04/11/23 19:39 Dose: 50 mg Allergies Allergies Allergy/AdvReac Type Severity Reaction Status Date / Time No Known Allergies Allergy Verified 03/28/23 16:06 Assessment & Plan Assessment & Plan (1) Post traumatic stress disorder: Status: Acute Code(s): F43.10 - Post-traumatic stress disorder, unspecified (2) Acute anxiety: Status: Acute Code(s): F41.9 - Anxiety disorder, unspecified (3) Acute psychosis: Status: Acute Code(s): F23 - Brief psychotic disorder Plan 04/10/23- Schedule family meeting EEG 04/12/23 Increase in stiffness, EPS Increase Benztropine to 1 mg bid Benztropine 1 mg given in addition today. Patient educated on: medication risk/benefits and therapeutic strategies Guardian/Caregiver educated on: medication risk/benefits and therapeutic strategies Informed Consent: understands and further education needed Reason for continued inpatient stay Substantial Risk for: rapid decompensation Time Spent With Patient Time: Total time managing care of this patient today ____ minutes.
[2023-04-12] MEDS: Benztropine Mesylate 1 MG TABLET PO ×2 (14:23→20:38)
[2023-04-12 16:23] VITALS: BP 113/66; PULSE 71; RESP 18; TEMP 36.9; O2SAT 97
[2023-04-12] MEDS: traZODone HCL 50 MG TABLET PO (20:41)
[2023-04-13] MEDS: Omeprazole 20 MG CAPSULE.DR PO (06:03)
[2023-04-13 08:25] VITALS: BP 114/76; PULSE 64; RESP 18; TEMP 36.6; O2SAT 97
[2023-04-13] MEDS: HaloperidoL 5 MG TABLET 10 MG PO ×2 (08:25→19:56)
[2023-04-13] MEDS: Benztropine Mesylate 1 MG TABLET PO ×2 (08:26→19:56)
[2023-04-13] MEDS: hydrOXYzine HCL 50 MG TABLET PO ×2 (08:26→19:56)
[2023-04-13] MEDS: cloNIDine HCL 0.1 MG TABLET PO ×3 (08:26→19:56)
[2023-04-13] MEDS: Sertraline HCL 25 MG TABLET 75 MG PO (08:26)
[2023-04-13] MEDS: Hydrocortisone 1 % Cream 28.35 GM TUBE 1 APPL TOPICAL (08:28)
--- NOTE | 2023-04-13 09:52 | P.PNPSI_ITS ---
Subjective Subjective Date of Service: 04/13/23 Reason For Visit: PTSD Acute Psychosis Interim History: With patient; discussed with team; reviewed notes Patient reports that he is doing better. Feels more clear minded. Denies any AVH or SI. No complaints and no requests Mental Status Exam Mental Status Exam Patient Appearance: Appropriate Patient Orientation: Person, Place, Time and Situation Level of Consciousness: Alert Patient Behavior: Cooperative and Good Eye Contact Mood Description: Calm ( better ) Affect Description: Constricted Patient Cognition Impaired: No Ability to Follow Directions: Good Speech Pattern: Appropriate and Spontaneous Speech Memory Description: Remote Impaired Hallucinations: None Delusions: Not Present Thought Process: Goal Oriented Thought Content: positive for [place], positive for Circumstantial, positive for Perseveration, positive for Suicidal Ideation (denies) and positive for Homicidal Ideation (denies) Judgement: Fair Diagnostics Vital Signs (24Hr): Vital Signs - 24 hr 04/12/23 16:23 04/13/23 08:25 Temperature 98.4 F 97.8 F Pulse Rate 71 64 Respiratory Rate 18 18 Blood Pressure 113/66 114/76 Pulse Oximetry 97 97 Oxygen Delivery Method Room Air Room Air BMI result Body Mass Index 33.3 Labs 04/06/23 20:18 04/06/23 20:18 Medications Medications Current Medications Acetaminophen (Acetaminophen 325 Mg Tablet) 650 mg PO Q6H PRN PRN Reason: Headache/Pain Mild Scale (1-3) Al Hydroxide/Mg Hydroxide (Magnesium Hydrox/Alum Hydrox 30 Ml Oral.Susp) 30 ml PO Q6H PRN PRN Reason: Heartburn/Nausea Benztropine Mesylate (Benztropine Mesylate 1 Mg Tablet) 1 mg PO BID [facility] Last Admin: 04/13/23 08:26 Dose: 1 mg Clonidine HCl (Clonidine Hcl 0.1 Mg Tablet) 0.1 mg PO TID [facility]; Protocol Last Admin: 04/13/23 08:26 Dose: 0.1 mg Haloperidol (Haloperidol 5 Mg Tablet) 10 mg PO BID [facility] Last Admin: 04/13/23 08:25 Dose: 10 mg Hydrocortisone (Hydrocortisone 1 % Cream 28.35 Gm Tube) 1 appl TOPICAL BID PRN; Protocol PRN Reason: affected areas Last Admin: 04/13/23 08:28 Dose: 1 appl Hydroxyzine HCl (Hydroxyzine Hcl 50 Mg Tablet) 50 mg PO BID [facility] Last Admin: 04/13/23 08:26 Dose: 50 mg Hydroxyzine HCl (Hydroxyzine Hcl 25 Mg Tablet) 25 mg PO Q6H PRN PRN Reason: Anxiety Last Admin: 04/11/23 19:39 Dose: 25 mg Magnesium Hydroxide (Milk Of Magnesia 30 Ml Oral.Susp) 30 ml PO DAILY PRN PRN Reason: Constipation Omeprazole (Omeprazole 20 Mg Capsule.Dr) 20 mg PO DAILY@0630 [facility] Last Admin: 04/13/23 06:03 Dose: 20 mg Sertraline HCl (Sertraline Hcl 25 Mg Tablet) 75 mg PO DAILY [facility] Last Admin: 04/13/23 08:26 Dose: 75 mg Trazodone HCl (Trazodone Hcl 50 Mg Tablet) 50 mg PO BEDTIME MRX1 PRN PRN Reason: Insomnia Last Admin: 04/12/23 20:41 Dose: 50 mg Allergies Allergies Allergy/AdvReac Type Severity Reaction Status Date / Time No Known Allergies Allergy Verified 03/28/23 16:06 Assessment & Plan Assessment & Plan (1) Post traumatic stress disorder: Status: Acute Code(s): F43.10 - Post-traumatic stress disorder, unspecified (2) Acute anxiety: Status: Acute Code(s): F41.9 - Anxiety disorder, unspecified (3) Acute psychosis: Status: Resolved Code(s): F23 - Brief psychotic disorder Plan 04/10/23- Schedule family meeting EEG 04/12/23 Increase in stiffness, EPS Increase Benztropine to 1 mg bid Benztropine 1 mg given in addition today. 04/13 continue current treatment regimen Patient educated on: diagnosis Informed Consent: understands Reason for continued inpatient stay Substantial Risk for: med/psych decompensation Time Spent With Patient Time: Total time managing care of this patient today ____ minutes.
[2023-04-13 18:15] VITALS: BP 100/68; PULSE 74; RESP 16; TEMP 36.1; O2SAT 97
[2023-04-13] MEDS: traZODone HCL 50 MG TABLET PO (19:56)
[2023-04-14] MEDS: Omeprazole 20 MG CAPSULE.DR PO (05:19)
[2023-04-14] MEDS: Acetaminophen 325 MG TABLET 650 MG PO ×2 (08:06→20:34)
[2023-04-14] MEDS: Sertraline HCL 25 MG TABLET 75 MG PO (08:06)
[2023-04-14] MEDS: HaloperidoL 5 MG TABLET 10 MG PO ×2 (08:06→20:39)
[2023-04-14] MEDS: hydrOXYzine HCL 50 MG TABLET PO ×2 (08:07→20:38)
[2023-04-14] MEDS: Benztropine Mesylate 1 MG TABLET PO ×2 (08:07→20:39)
[2023-04-14] MEDS: cloNIDine HCL 0.1 MG TABLET PO ×3 (08:07→20:38)
[2023-04-14 08:08] VITALS: BP 126/81; PULSE 61; RESP 18; TEMP 36.1; O2SAT 96
--- NOTE | 2023-04-14 09:58 | P.PNPSI_ITS ---
Subjective Subjective Date of Service: 04/14/23 Reason For Visit: PTSD Acute Psychosis Interim History: Met with patient; discussed with team Patient?reports?that?he?is pretty?good no?complaints?and?no?requests Mental Status Exam Mental Status Exam Patient Appearance: Appropriate Patient Orientation: Person, Place, Time and Situation Level of Consciousness: Alert Patient Behavior: Cooperative and Good Eye Contact Mood Description: Calm ( better ) Affect Description: Constricted Patient Cognition Impaired: No Ability to Follow Directions: Good Speech Pattern: Appropriate and Spontaneous Speech Memory Description: Remote Impaired Hallucinations: None Delusions: Not Present Thought Process: Goal Oriented Thought Content: positive for [place], positive for Circumstantial, positive for Perseveration, positive for Suicidal Ideation (denies) and positive for Homicidal Ideation (denies) Judgement: Fair Diagnostics Vital Signs (24Hr): Vital Signs - 24 hr 04/13/23 18:15 04/14/23 08:08 Temperature 96.9 F 97 F Pulse Rate 74 61 Respiratory Rate 16 18 Blood Pressure 100/68 126/81 Pulse Oximetry 97 96 Oxygen Delivery Method Room Air Room Air BMI result Body Mass Index 33.3 Labs 04/06/23 20:18 04/06/23 20:18 Medications Medications Current Medications Acetaminophen (Acetaminophen 325 Mg Tablet) 650 mg PO Q6H PRN PRN Reason: Headache/Pain Mild Scale (1-3) Last Admin: 04/14/23 08:06 Dose: 650 mg Al Hydroxide/Mg Hydroxide (Magnesium Hydrox/Alum Hydrox 30 Ml Oral.Susp) 30 ml PO Q6H PRN PRN Reason: Heartburn/Nausea Benztropine Mesylate (Benztropine Mesylate 1 Mg Tablet) 1 mg PO BID [facility] Last Admin: 04/14/23 08:07 Dose: 1 mg Clonidine HCl (Clonidine Hcl 0.1 Mg Tablet) 0.1 mg PO TID [facility]; Protocol Last Admin: 04/14/23 08:07 Dose: 0.1 mg Haloperidol (Haloperidol 5 Mg Tablet) 10 mg PO BID [facility] Last Admin: 04/14/23 08:06 Dose: 10 mg Hydrocortisone (Hydrocortisone 1 % Cream 28.35 Gm Tube) 1 appl TOPICAL BID PRN; Protocol PRN Reason: affected areas Last Admin: 04/13/23 08:28 Dose: 1 appl Hydroxyzine HCl (Hydroxyzine Hcl 50 Mg Tablet) 50 mg PO BID [facility] Last Admin: 04/14/23 08:07 Dose: 50 mg Hydroxyzine HCl (Hydroxyzine Hcl 25 Mg Tablet) 25 mg PO Q6H PRN PRN Reason: Anxiety Last Admin: 04/11/23 19:39 Dose: 25 mg Magnesium Hydroxide (Milk Of Magnesia 30 Ml Oral.Susp) 30 ml PO DAILY PRN PRN Reason: Constipation Omeprazole (Omeprazole 20 Mg Capsule.Dr) 20 mg PO DAILY@0630 [facility] Last Admin: 04/14/23 05:19 Dose: 20 mg Sertraline HCl (Sertraline Hcl 25 Mg Tablet) 75 mg PO DAILY [facility] Last Admin: 04/14/23 08:06 Dose: 75 mg Trazodone HCl (Trazodone Hcl 50 Mg Tablet) 50 mg PO BEDTIME MRX1 PRN PRN Reason: Insomnia Last Admin: 04/13/23 19:56 Dose: 50 mg Allergies Allergies Allergy/AdvReac Type Severity Reaction Status Date / Time No Known Allergies Allergy Verified 03/28/23 16:06 Assessment & Plan Assessment & Plan (1) Post traumatic stress disorder: Status: Acute Code(s): F43.10 - Post-traumatic stress disorder, unspecified (2) Acute anxiety: Status: Acute Code(s): F41.9 - Anxiety disorder, unspecified (3) Acute psychosis: Status: Resolved Code(s): F23 - Brief psychotic disorder Plan 04/10/23- Schedule family meeting EEG 04/12/23 Increase in stiffness, EPS Increase Benztropine to 1 mg bid Benztropine 1 mg given in addition today. 04/13 continue current treatment regimen 04/14?continue?current?treatment?regimen Patient educated on: diagnosis Informed Consent: understands Reason for continued inpatient stay Substantial Risk for: med/psych decompensation Time Spent With Patient Time: Total time managing care of this patient today ____ minutes.
[2023-04-14 16:10] VITALS: BP 121/77; PULSE 71; RESP 16; TEMP 36.3; O2SAT 99
[2023-04-14] MEDS: Hydrocortisone 1 % Cream 28.35 GM TUBE 1 APPL TOPICAL (18:29)
[2023-04-14] MEDS: traZODone HCL 50 MG TABLET PO (20:38)
[2023-04-15] MEDS: Omeprazole 20 MG CAPSULE.DR PO (06:27)
[2023-04-15 08:01] VITALS: BP 128/85; PULSE 63; RESP 16; TEMP 36.1; O2SAT 97
[2023-04-15] MEDS: Sertraline HCL 25 MG TABLET 75 MG PO (08:40)
[2023-04-15] MEDS: HaloperidoL 5 MG TABLET 10 MG PO ×2 (08:40→19:55)
[2023-04-15] MEDS: cloNIDine HCL 0.1 MG TABLET PO ×3 (08:41→19:56)
[2023-04-15] MEDS: Benztropine Mesylate 1 MG TABLET PO ×2 (08:41→19:55)
[2023-04-15] MEDS: hydrOXYzine HCL 50 MG TABLET PO ×2 (08:41→19:57)
--- NOTE | 2023-04-15 14:37 | HO.PSYCHPN ---
Subjective Subjective Date of Service: 04/15/23 Reason For Visit: PTSD Acute Psychosis Subjective Notes: Conditional Voluntary Healthcare Proxy: No Guardianship: No Medical Problems Affecting Mental Status: No Interim History: Team reports a stable weekend with stable mood, affect, thought process. Pt reports achilles pain which he states he has had by history. Discussed discharge with pt and team. Will plan for 04/17/23 currently. Pt wanting to be home for Halloween with the children. Given the recent symptoms, failed discharge and sx of psychosis, it appears to present a risk for pt to leave on Halloween due to potential to misperceive the environment and activities, potentiating risk for decline, thus 04/17/23 date. Reviewed EEG results with pt which are negative. Medication Compliance: Yes Side effects from medications: No Attending Groups: Intermittent Review of Systems Acute medical concerns: No Medical Review of Systems: unchanged Mental Status Exam Mental Status Exam Patient Appearance: Appropriate Patient Orientation: Person, Place, Time and Situation Level of Consciousness: Alert Patient Behavior: Appropriate, Talkative, Cooperative and Good Eye Contact Mood Description: Constricted Affect Description: Constricted Patient Cognition Impaired: No Ability to Follow Directions: Good Speech Pattern: Spontaneous Speech, Coherent and Soft-Spoken Memory Description: Intact and Episodic Impaired Hallucinations: None (denies) Delusions: Not Present (denies) Perceptual Disturbances: Derealization Thought Process: Goal Oriented Thought Content: positive for Goal Oriented Judgement: Good Diagnostics Vital Signs (24Hr): Vital Signs - 24 hr 04/14/23 16:10 04/15/23 08:01 Temperature 97.4 F 97 F Pulse Rate 71 63 Respiratory Rate 16 16 Blood Pressure 121/77 128/85 Pulse Oximetry 99 97 Oxygen Delivery Method Room Air Room Air BMI result Body Mass Index 33.3 Labs 04/06/23 20:18 04/06/23 20:18 Medications Medications Current Medications Acetaminophen (Acetaminophen 325 Mg Tablet) 650 mg PO Q6H PRN PRN Reason: Headache/Pain Mild Scale (1-3) Last Admin: 04/14/23 20:34 Dose: 650 mg Al Hydroxide/Mg Hydroxide (Magnesium Hydrox/Alum Hydrox 30 Ml Oral.Susp) 30 ml PO Q6H PRN PRN Reason: Heartburn/Nausea Benztropine Mesylate (Benztropine Mesylate 1 Mg Tablet) 1 mg PO BID [facility] Last Admin: 04/15/23 08:41 Dose: 1 mg Clonidine HCl (Clonidine Hcl 0.1 Mg Tablet) 0.1 mg PO TID [facility]; Protocol Last Admin: 04/15/23 08:41 Dose: 0.1 mg Haloperidol (Haloperidol 5 Mg Tablet) 10 mg PO BID [facility] Last Admin: 04/15/23 08:40 Dose: 10 mg Hydrocortisone (Hydrocortisone 1 % Cream 28.35 Gm Tube) 1 appl TOPICAL BID PRN; Protocol PRN Reason: affected areas Last Admin: 04/14/23 18:29 Dose: 1 appl Hydroxyzine HCl (Hydroxyzine Hcl 50 Mg Tablet) 50 mg PO BID [facility] Last Admin: 04/15/23 08:41 Dose: 50 mg Hydroxyzine HCl (Hydroxyzine Hcl 25 Mg Tablet) 25 mg PO Q6H PRN PRN Reason: Anxiety Last Admin: 04/11/23 19:39 Dose: 25 mg Magnesium Hydroxide (Milk Of Magnesia 30 Ml Oral.Susp) 30 ml PO DAILY PRN PRN Reason: Constipation Omeprazole (Omeprazole 20 Mg Capsule.Dr) 20 mg PO DAILY@0630 [facility] Last Admin: 04/15/23 06:27 Dose: 20 mg Sertraline HCl (Sertraline Hcl 25 Mg Tablet) 75 mg PO DAILY [facility] Last Admin: 04/15/23 08:40 Dose: 75 mg Trazodone HCl (Trazodone Hcl 50 Mg Tablet) 50 mg PO BEDTIME MRX1 PRN PRN Reason: Insomnia Last Admin: 04/14/23 20:38 Dose: 50 mg Allergies Allergies Allergy/AdvReac Type Severity Reaction Status Date / Time No Known Allergies Allergy Verified 03/28/23 16:06 Assessment & Plan Assessment & Plan (1) Post traumatic stress disorder: Status: Acute Code(s): F43.10 - Post-traumatic stress disorder, unspecified (2) Acute anxiety: Status: Acute Code(s): F41.9 - Anxiety disorder, unspecified (3) Acute psychosis: Status: Resolved Code(s): F23 - Brief psychotic disorder Plan 04/10/23- Schedule family meeting EEG 04/12/23 Increase in stiffness, EPS Increase Benztropine to 1 mg bid Benztropine 1 mg given in addition today. 04/13 continue current treatment regimen 04/14?continue?current?treatment?regimen 04/15/23 Continue current regime and plan of care Discharge planned for 04/17/23. Patient educated on: medication risk/benefits and therapeutic strategies Informed Consent: understands Reason for continued inpatient stay Substantial Risk for: rapid decompensation Time Spent With Patient Time: Total time managing care of this patient today ____ minutes.
[2023-04-15 14:45] VITALS: BP 120/79; PULSE 66
[2023-04-15 19:53] VITALS: BP 120/84; PULSE 80; RESP 16; TEMP 36.8
[2023-04-15] MEDS: traZODone HCL 50 MG TABLET PO (19:55)
[2023-04-16] MEDS: Omeprazole 20 MG CAPSULE.DR PO (06:29)
[2023-04-16 08:00] VITALS: BP 115/82; PULSE 60; RESP 16; TEMP 36.3; O2SAT 98
[2023-04-16] MEDS: Benztropine Mesylate 1 MG TABLET PO ×2 (10:07→22:00)
[2023-04-16] MEDS: cloNIDine HCL 0.1 MG TABLET PO ×3 (10:07→22:02)
[2023-04-16] MEDS: hydrOXYzine HCL 50 MG TABLET PO ×2 (10:07→22:00)
[2023-04-16] MEDS: HaloperidoL 5 MG TABLET 10 MG PO (10:07)
[2023-04-16] MEDS: Sertraline HCL 25 MG TABLET 75 MG PO (10:08)
[2023-04-16] MEDS: Acetaminophen 325 MG TABLET 650 MG PO (10:08)
[2023-04-16 14:51] VITALS: BP 110/77; PULSE 78
--- NOTE | 2023-04-16 16:02 | HO.PSYCHPN ---
Subjective Subjective Date of Service: 04/16/23 Reason For Visit: PTSD Acute Psychosis Subjective Notes: Conditional Voluntary Healthcare Proxy: No Guardianship: No Medical Problems Affecting Mental Status: No Medication Compliance: Yes Side effects from medications: Yes (eps resolving with benztropine) Attending Groups: Intermittent Review of Systems Acute medical concerns: No Medical Review of Systems: unchanged Mental Status Exam Mental Status Exam Patient Appearance: Appropriate Patient Orientation: Person, Place, Time and Situation Level of Consciousness: Alert Patient Behavior: Appropriate, Talkative, Cooperative and Good Eye Contact Mood Description: Constricted Affect Description: Constricted Patient Cognition Impaired: No Ability to Follow Directions: Good Speech Pattern: Spontaneous Speech, Coherent and Soft-Spoken Memory Description: Intact and Episodic Impaired Hallucinations: None (denies) Delusions: Not Present (denies) Perceptual Disturbances: Derealization Thought Process: Goal Oriented Thought Content: positive for Goal Oriented Judgement: Good Diagnostics Vital Signs (24Hr): Vital Signs - 24 hr 04/15/23 19:53 04/16/23 08:00 04/16/23 14:51 Temperature 98.3 F 97.3 F Pulse Rate 80 60 78 Respiratory Rate 16 16 Blood Pressure 120/84 115/82 110/77 Pulse Oximetry 98 Oxygen Delivery Method Room Air BMI result Body Mass Index 33.3 Labs 04/17/23 07:54 04/17/23 07:53 Medications Medications Current Medications Acetaminophen (Acetaminophen 325 Mg Tablet) 650 mg PO Q6H PRN PRN Reason: Headache/Pain Mild Scale (1-3) Last Admin: 04/16/23 10:08 Dose: 650 mg Al Hydroxide/Mg Hydroxide (Magnesium Hydrox/Alum Hydrox 30 Ml Oral.Susp) 30 ml PO Q6H PRN PRN Reason: Heartburn/Nausea Benztropine Mesylate (Benztropine Mesylate 1 Mg Tablet) 1 mg PO BID [facility] Last Admin: 04/16/23 10:07 Dose: 1 mg Clonidine HCl (Clonidine Hcl 0.1 Mg Tablet) 0.1 mg PO TID [facility]; Protocol Last Admin: 04/16/23 14:50 Dose: 0.1 mg Haloperidol (Haloperidol 0.5 Mg Tablet) 7.5 mg PO BID [facility] Hydrocortisone (Hydrocortisone 1 % Cream 28.35 Gm Tube) 1 appl TOPICAL BID PRN; Protocol PRN Reason: affected areas Last Admin: 04/14/23 18:29 Dose: 1 appl Hydroxyzine HCl (Hydroxyzine Hcl 50 Mg Tablet) 50 mg PO BID [facility] Last Admin: 04/16/23 10:07 Dose: 50 mg Hydroxyzine HCl (Hydroxyzine Hcl 25 Mg Tablet) 25 mg PO Q6H PRN PRN Reason: Anxiety Last Admin: 04/11/23 19:39 Dose: 25 mg Magnesium Hydroxide (Milk Of Magnesia 30 Ml Oral.Susp) 30 ml PO DAILY PRN PRN Reason: Constipation Omeprazole (Omeprazole 20 Mg Capsule.Dr) 20 mg PO DAILY@0630 [facility] Last Admin: 04/16/23 06:29 Dose: 20 mg Sertraline HCl (Sertraline Hcl 25 Mg Tablet) 75 mg PO DAILY [facility] Last Admin: 04/16/23 10:08 Dose: 75 mg Trazodone HCl (Trazodone Hcl 50 Mg Tablet) 50 mg PO BEDTIME MRX1 PRN PRN Reason: Insomnia Last Admin: 04/15/23 19:55 Dose: 50 mg Allergies Allergies Allergy/AdvReac Type Severity Reaction Status Date / Time No Known Allergies Allergy Verified 03/28/23 16:06 Assessment & Plan Assessment & Plan (1) Post traumatic stress disorder: Status: Acute Code(s): F43.10 - Post-traumatic stress disorder, unspecified (2) Acute anxiety: Status: Acute Code(s): F41.9 - Anxiety disorder, unspecified (3) Acute psychosis: Status: Resolved Code(s): F23 - Brief psychotic disorder Plan 04/10/23- Schedule family meeting EEG 04/12/23 Increase in stiffness, EPS Increase Benztropine to 1 mg bid Benztropine 1 mg given in addition today. 04/13 continue current treatment regimen 04/14?continue?current?treatment?regimen 04/15/23 Continue current regime and plan of care Discharge planned for 04/17/23. 04/16/23 Discharge 04/17. Team reports somewhat more isolative during the day. Reports plantar fasciitis/achilles pain, this occurs 1-2 times per year per pt and Decrease Haldol to 7.5 mg bid from 10 mg bid Patient educated on: medication risk/benefits, therapeutic strategies and medical condition Informed Consent: understands Reason for continued inpatient stay Substantial Risk for: rapid decompensation Time Spent With Patient Time: Total time managing care of this patient today ____ minutes.
[2023-04-16 18:00] VITALS: BP 117/68; PULSE 71; TEMP 36.7; O2SAT 97
[2023-04-16] MEDS: Ibuprofen 800 MG TABLET PO (19:06)
[2023-04-16] MEDS: HaloperidoL 5 MG TABLET 7.5 MG PO (22:00)
[2023-04-16] MEDS: traZODone HCL 50 MG TABLET PO (22:00)
--- NOTE | 2023-04-17 | ECG_ITS ---
Test Reason : qtc check Blood Pressure : / mmHG Vent. Rate : 072 BPM Atrial Rate : 072 BPM P-R Int : 128 ms QRS Dur : 080 ms QT Int : 410 ms P-R-T Axes : 021 047 015 degrees QTc Int : 448 ms Normal sinus rhythm Nonspecific T wave abnormality Abnormal ECG When compared with ECG of 08-APR-2023 11:32, T wave amplitude has decreased in Anterior leads Inferior leads Referred By: Erika Okeefe Electronically Signed By:JORDAN DIA MD
[2023-04-17] MEDS: Ibuprofen 800 MG TABLET PO (04:23)
[2023-04-17] MEDS: Sertraline HCL 25 MG TABLET 75 MG PO (08:14)
[2023-04-17] MEDS: hydrOXYzine HCL 50 MG TABLET PO (08:14)
[2023-04-17] MEDS: HaloperidoL 5 MG TABLET 7.5 MG PO (08:14)
[2023-04-17] MEDS: cloNIDine HCL 0.1 MG TABLET PO (08:15)
[2023-04-17] MEDS: Omeprazole 20 MG CAPSULE.DR PO (08:15)
[2023-04-17] MEDS: Benztropine Mesylate 1 MG TABLET PO (08:15)
[2023-04-17 08:17] VITALS: BP 121/88; PULSE 82; RESP 18; TEMP 36.2; O2SAT 97
[2023-04-17 08:43] LABS: MANUAL DIFF FLAG NO
[2023-04-17 08:45] LABS: Basophils Percent Auto 0.4 % (0-2); Eosinophils Absolute Auto 0.1 X10*3/uL (0.0-0.4); Eosinophils Percent Auto 1.6 % (0-4); Hematocrit 45.8 % (42.0-52.0); Hemoglobin 15.6 g/dl (14.0-18.0); Imm Gran Abs Auto 0.04 X10*3/uL (0.00-0.03); Imm Gran Pct Auto 0.4 % (0.0-0.4); Lymphocytes Absolute Auto 2.5 X10*3/uL (1.2-4.9); Lymphocytes Percent Auto 27.5 % (20-40); Mean Corpuscular HGB Conc 34.1 g/dl (31.0-36.0); Mean Corpuscular Hemoglobin 28.9 pg (27.0-33.0); Mean Platelet Volume 11.3 fL (9.4-12.4); Monocytes Absolute Auto 0.7 X10*3/uL (0.1-1.2); Monocytes Percent Auto 7.9 % (2-11); Neutrophils Absolute Auto 5.6 x10*3/uL (2.0-8.3); Neutrophils Percent Auto 62.2 % (45-73); Platelet Count 216 X10*3/uL (160-400); Red Blood Count 5.39 X10*6/uL (4.60-5.80); Red Cell Distribution Width 12.3 % (11.0-16.0)
[2023-04-17 09:02] LABS: Alanine Aminotransferase 51 U/L (0-40); Albumin Level 4.5 g/dL (3.5-5.0); Alkaline Phosphatase 83 U/L (39-117); Anion Gap 14 (12-20); Aspartate Amino Transferase 25 U/L (5-37); Bilirubin Total 0.3 mg/dL (0.0-1.0); Blood Urea Nitrogen 15 mg/dL (9-16); Calcium 10.2 mg/dL (8.4-10.2); Carbon Dioxide 25 mmol/L (22-29); Chloride 106 mmol/L (96-108); Creatinine Clr Calc Pharmacy 103.6; Estimated Glomerular Filt Rate > 60; Glucose Random 95 mg/dL (60-115); Potassium 4.2 mmol/L (3.3-5.1); Sodium 141 mmol/L (135-145); Total Protein 7.5 g/dL (6.5-8.0)
--- NOTE | 2023-04-17 14:55 | PM.PSYDC ---
DS: Providers Provider Date of Service: 04/17/23 Date of admission: 04/08/23 12:34 Date of discharge: 04/17/23 Primary care physician: Unknown Physician Admitting clinician: Erika Okeefe Attending physician on admission: Hebert Langston Attending physician on discharge: Hebert Langston Discharging clinician: Erika Okeefe DS: Diagnosis Discharge Diagnosis (1) Post traumatic stress disorder: Status: Acute (2) Acute anxiety: Status: Resolved (3) Acute psychosis: Status: Resolved DS: Medications Discharge Medications Home Medications: Previous Rx's Medication Instructions Recorded benztropine 1 mg tablet 1 mg PO BID #60 tabs 04/17/23 clonidine HCl 0.1 mg tablet 0.1 mg PO TID #90 tabs 04/17/23 haloperidol 5 mg tablet 7.5 mg (1.5 x 5 mg) PO BID #90 tabs 04/17/23 hydrocortisone 1 % topical cream 1 appl topical BID PRN affected 04/17/23 areas #1 units hydroxyzine pamoate 25 mg capsule 50 mg (2 x 25 mg) PO BID #60 caps 04/17/23 omeprazole 20 mg capsule,delayed 20 mg PO DAILY@0630 #30 caps 04/17/23 release sertraline 25 mg tablet 75 mg (3 x 25 mg) PO DAILY #45 tabs 04/17/23 trazodone 50 mg tablet 50 mg PO BEDTIME MRX1 PRN Insomnia 04/17/23 #60 tabs Mental Status Exam Mental Status Exam Patient Appearance: Appropriate Patient Orientation: Person, Place, Time and Situation Level of Consciousness: Alert Patient Behavior: Appropriate, Talkative, Cooperative and Good Eye Contact Mood Description: Constricted Affect Description: Constricted Patient Cognition Impaired: No Ability to Follow Directions: Good Speech Pattern: Spontaneous Speech, Coherent and Soft-Spoken Memory Description: Intact and Episodic Impaired Hallucinations: None (denies) Delusions: Not Present (denies) Perceptual Disturbances: Derealization Thought Process: Goal Oriented Thought Content: positive for Goal Oriented Judgement: Good Data Data Completed and Pending Completed studies during hospitalization [Text1]: 04/17/23 04/17/23 07:53 07:54 WBC 9.0 RBC 5.39 Hgb 15.6 Hct 45.8 MCV 85.0 MCH 28.9 MCHC 34.1 RDW 12.3 Plt Count 216 MPV 11.3 Immature Gran % (Auto) 0.4 Neut % (Auto) 62.2 Lymph % (Auto) 27.5 Metcalfe % (Auto) 7.9 Eos % (Auto) 1.6 Baso % (Auto) 0.4 Lymph # (Auto) 2.5 [place]fe # (Auto) 0.7 Eos # (Auto) 0.1 Baso # (Auto) 0.0 Abs Immat Gran (auto) 0.04 H Absolute Neuts (auto) 5.6 Absolute Nucleated RBC 0.000 Nucleated RBC % (auto) 0.0 Sodium 141 Potassium 4.2 Chloride 106 Carbon Dioxide 25 Anion Gap 14 BUN 15 Creatinine 1.04 Estim Creat Clear Calc 103.6 Estimated GFR > 60 Random Glucose 95 Calcium 10.2 D Total Bilirubin 0.3 AST 25 ALT 51 H Alkaline Phosphatase 83 Total Protein 7.5 Albumin 4.5 DS: Summary Hospital Course Hospital Course: Admission to adult psychiatry for exacerbation of PTSD with acute psychosis. Recent discharge 04/05 as family was fearful having pt remain on a psychiatric unit. Pt and family report upon return to home decompensation, pt explaining, I just was not ready, and I knew it. Medications were assessed and changes made, education was provided to the family, who seemed more comfortable with the admission as it progressed. Out patient resources were continued in place and pt was prepared to discharge to family with new knowledge of more supports in place at home. Time spent discussing smoking cessation with patient: 3 to 10 minutes Status at Discharge Functional status at discharge: independent ambulation Overall status at discharge: patient is back to baseline Time Spent with Patient Time attestation: Total time managing care of this patient today ____ minutes. Time spent: Greater than 30 minutes Discharge Plan Discharge Anticipated Discharge Date/Time: 04/17/23 12:00 Patient Disposition: Home, Self-Care Discharge Diagnosis: PTSD with Psychosis Referrals: [facility] kurtis Anderson [Other] - 04/24/23 12:00 pm [facility]ication Mgmt w Newton Stevens [Other] - 05/02/23 9:30 am Discharge Medications: New haloperidol 5 mg Tablet 7.5 mg PO BID Qty: 90 0RF trazodone 50 mg Tablet 50 mg PO BEDTIME MRX1 PRN (Reason: Insomnia) Qty: 60 0RF hydrocortisone 1 % Cream 1 appl topical BID PRN (Reason: affected areas) Qty: 1 0RF Protocol: Apply to: Apply to: affected areas benztropine 1 mg Tablet 1 mg PO BID Qty: 60 0RF sertraline 25 mg Tablet 75 mg PO DAILY Qty: 45 0RF omeprazole 20 mg Capsule,Delayed Release(Dr/Ec) 20 mg PO DAILY@0630 Qty: 30 0RF Continued clonidine HCl 0.1 mg tablet 0.1 mg PO TID Qty: 90 0RF hydroxyzine pamoate 25 mg capsule 50 mg PO BID Qty: 60 0RF Discontinued sertraline 50 mg Tablet 50 mg PO DAILY Qty: 30 0RF benztropine 0.5 mg tablet 0.5 mg PO BID haloperidol 5 mg tablet 10 mg PO BID trazodone 50 mg tablet 50 mg PO BEDTIME Discharge Orders: Discharge Order (Routine); Ordered 04/17/23 Ordered By: Erika Okeefe Diet: Advance to usual diet Activity on Discharge: As tolerated Stand Alone Forms: Patient Portal Discharge page, Community Support Care Plan Goals: Mood and Behavioral Stabilization Health Concerns: Mood and Behavioral Stabilization Plan of Treatment: Attend scheduled appointments Take medications as directed Assessment: Scheduled discharge Discharge Date/Time: 04/17/23 11:25
--- NOTE | 2023-04-19 10:48 | EEG_ITS ---
This is a 16-channel EEG with an EKG lead. DICTATION ENDS HERE. MD KAELA Joy/LATONYA / [id number]
== END 2023-04-17 11:25 | disposition home or self-care (01) | DRG 751 ==
LOC: HO.ED 20:50 → HO.PM5 04-08 12:39
PROVIDERS: Emergency Medicine; Admitting Provider Psychiatry & Neurology Psychiatry; Emergency Provider Emergency Medicine; Visit Provider Clinical Nurse Specialist Psychiatric/Mental Health, Adult
DX: F23 Brief psychotic disorder (principal); F41.9 Anxiety disorder, unspecified; F43.10 Post-traumatic stress disorder, unspecified; Z20.822 Contact with and (suspected) exposure to COVID-19; Z79.899 Other long term (current) drug therapy
CPT/HCPCS: 36415; 80053; 80061; 80307; 81003; 82607; 82746; 83036; 83735; 84439; 84443; 85025; 87635; 93005; 95816; 99285; J1200; J2060

== ENCOUNTER → 2023-04-08 12:34 | Outpatient (BNV) | payer BC, SELFPAY | PROVIDERS: Admitting Provider Psychiatry & Neurology Psychiatry; Emergency Provider Emergency Medicine; Visit Provider Clinical Nurse Specialist Psychiatric/Mental Health, Adult | DX: F23 Brief psychotic disorder (principal); F43.11 Post-traumatic stress disorder, acute; F41.9 Anxiety disorder, unspecified | CPT/HCPCS: 90792; 99231; 99232; 99239 ==